=== PATIENT | male | born 2005 | race Caucasian/White ===

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

== ENCOUNTER → 2023-05-11 | Outpatient (CLI) | payer OTHER, SELFPAY ==
--- OUTSIDE RECORDS SUMMARY | 2023-05-11 11:21 | XMS RPT_ITS | CCD ---
Author Name Unknown Address [facility] [facility] [address] [place] [address] Organization [facility] Care Team Providers Care Security Support Analyst Name Role Phone Magdy Muñiz MD Primary Care Provider Medications Current Medications Medication Drug Class(es) Dates Sig (Normalized) Sig (Original) montelukast 10 mg oral tablet (2 sources) Leukotriene Receptor Antagonist Start: 03-27-2020 End: 10-31-2022 take 1 tablet by mouth once daily at bedtime montelukast (SINGULAIR) 10 mg tablet Take 1 tablet by mouth daily at bedtime. 90 tablet 0 10/31/2021 10/31/2022 Active Completed/Discontinued Medications Medication Drug Class(es) Dates Sig (Normalized) Sig (Original) [id number] 200 actuat albuterol 0.09 mg/actuat metered dose inhaler (1 source) beta2-Adrenergic Agonist Start: 07-14-2017 take 2 puff(s) by inhalation every four hours as needed for wheezing albuterol HFA (VENTOLIN HFA) 90 mcg/actuation inhaler Inhale 2 Puffs as instructed every 4 hours as needed. For wheezing/shortnes s of breath. 1 Inhaler 1 07/14/2017 Active Problems Problem Classification Problem Date Documented Date Episodic/Chronic Asthma (1 source) Uncomplicated mild persistent asthma; Translations: [Mild persistent asthma, uncomplicated] Onset: 11-01-2017 11-01-2017 Chronic Results Test Name Value Interpretation Reference Range Facil ity Encounters Encounter Date Encounter Type Care Provider Facility Start: 10-31-2021 Refill Magdy Muñiz MD Work Phone: [facility] Procedures Date Procedure Procedure Detail Performing Clinician Start: 08-24-2019 Adult depression screening assessment Magdy Muñiz MD Work Phone: Plan of Treatment Date Care Activity Detail Author Start: 11-06-2025 Urine microalbumin profile DTA P,TDAP,TD (7 - Td or Tdap) [facility] Start: 03-27-2022 ASTHMA ACTION PLAN ASTHMA ACTION JUSTIN N [facility] Start: 12-10-2021 Influenza vaccination INFLUENZA (#1) [facility] Start: 08-07-2021 ANNUAL PCP TEAM REALTIME REPORTER ROBERTO DISEASE VISIT ANNUAL PCP TEAM CHRONIC DISEASE VISIT [facility] Start: 2021 HEPATITIS C SCREENING HEPATITIS C SC REENING [facility] Start: 2021 HIV SCREENING HIV SCREENING [facility] Start: 2021 SPIROMETRY SPIROMETRY [facility] Start: 08-23-2020 Adult depression scr eening assessment DEPRESSION SCREENING [facility] Start: 08-22-2020 COVID-19 VACCINE (2 - Pfizer series) COVID-19 VACCINE (2 - Pfizer series) [facility] Start: 03-17-2020 ASTHMA CONTROL TEST ASTHMA CONTROL T EST [facility] Start: 2017 PEDS TO ADULT TRANSI TION ANNUAL ASSESSMENT PEDS TO ADULT TRANSITION ANNUAL ASSESSMENT [facility] Start: 2015 PEDS TO ADULT TRANSI TION INITIAL DISCUSSION PEDS TO ADULT TRANSITION INITIAL DISCUSSION [facility] Start: 2013 MENINGOCOCCAL B: Con razor sharpener based on risk (1 of 2 - Risk Bexsero 2-dose series) MENINGOCOCCAL B: Consider based on risk (1 of 2 - Risk Bexsero 2-dose series) [facility] Immunizations Immunization Date Immunization Notes Care Provider Fa hortencia 03-17-2019 meningococcal polysaccharide (groups A, C, Y and W-135) diphtheria toxoid conjugate vaccine (MCV4P) Magdy Muñiz MD Work Phone: [facility] 03-03-2019 influenza, injectabl e, quadrivalent, contains preservative Magdy Muñiz MD Work Phone: [facility] Work Phone: 02-02-2018 Human Papillomavirus 9-valent vaccine Magdy Muñiz MD Work Phone: [facility] 02-02-2018 influenza, injectabl e, quadrivalent, contains preservative Magdy Muñiz MD Work Phone: [facility] 01-09-2017 influenza, injectabl e, quadrivalent, contains preservative Magdy Muñiz MD Work Phone: [facility] 02-18-2016 influenza, injectabl e, quadrivalent, preservative free Magdy Muñiz MD Work Phone: [facility] 11-07-2015 Human Papillomavirus 9-valent vaccine Magdy Muñiz MD Work Phone: [facility] 11-07-2015 meningococcal polysaccharide (groups A, C, Y and W-135) diphtheria toxoid conjugate vaccine (MCV4P) Magdy Muñiz MD Work Phone: [facility] 11-07-2015 tetanus toxoid, redu shreya diphtheria toxoid, and acellular pertussis vaccine, adsorbed Magdy Muñiz MD Work Phone: [facility] 02-12-2015 influenza, injectabl e, quadrivalent, contains preservative Magdy Muñiz MD Work Phone: [facility] 01-23-2014 influenza, seasonal, injectable Magdy Muñiz MD Work Phone: [facility] Work Phone: 01-13-2013 influenza virus vacc ine, live, attenuated, for intranasal use Magdy Muñiz MD Work Phone: [facility] Work Phone: 01-08-2012 influenza virus vacc ine, live, attenuated, for intranasal use Magdy Muñiz MD Work Phone: [facility] 01-09-2011 influenza virus vacc ine, live, attenuated, for intranasal use Magdy Muñiz MD Work Phone: [facility] 02-09-2010 influenza virus vacc ine, live, attenuated, for intranasal use Magdy Muñiz MD Work Phone: [facility] Work Phone: 02-12-2009 novel influenza-H1N1 -09, preservative-free, injectable Magdy Muñiz MD Work Phone: [facility] 06-10-2008 Diphtheria, tetanus toxoids and acellular pertussis vaccine, and poliovirus vaccine, inactivated Magdy Muñiz MD Work Phone: [facility] Work Phone: 06-10-2008 measles, mumps and rubella virus vaccine Magdy Muñiz MD Work Phone: [facility] Work Phone: 06-10-2008 varicella virus vaccine Magdy Muñiz MD Work Phone: [facility] Work Phone: 02-14-2008 influenza virus vacc ine, unspecified formulation Magdy Muñiz MD Work Phone: [facility] Work Phone: 02-13-2007 influenza virus vacc ine, unspecified formulation Magdy Muñiz MD Work Phone: [facility] 02-14-2006 influenza virus vacc ine, unspecified formulation Magdy Muñiz MD Work Phone: [facility] Work Phone: 02-02-2005 influenza virus vacc ine, unspecified formulation Magdy Muñiz MD Work Phone: [facility] Work Phone: 06-08-2004 diphtheria, tetanus toxoids and acellular pertussis vaccine Magdy Muñiz MD Work Phone: [facility] Work Phone: 06-08-2004 haemophilus influenz ae type b vaccine, HbOC conjugate Magdy Muñiz MD Work Phone: [facility] Work Phone: 04-24-2004 pneumococcal conjuga te vaccine, 7 valent Magdy Muñiz MD Work Phone: [facility] Work Phone: 02-28-2004 measles, mumps and rubella virus vaccine Magdy Muñiz MD Work Phone: [facility] Work Phone: 02-28-2004 varicella virus vaccine Magdy Muñiz MD Work Phone: [facility] Work Phone: 01-23-2004 pneumococcal conjuga te vaccine, 7 valent Magdy Muñiz MD Work Phone: [facility] Work Phone: 2003 hepatitis B vaccine, pediatric or pediatric/adolescent dosage Magdy Muñiz MD Work Phone: [facility] Work Phone: 2003 poliovirus vaccine, inactivated Magdy Muñiz MD Work Phone: [facility] Work Phone: 2003 diphtheria, tetanus toxoids and acellular pertussis vaccine Magdy Muñiz MD Work Phone: [facility] Work Phone: 2003 haemophilus influenz ae type b vaccine, HbOC conjugate Magdy Muñiz MD Work Phone: [facility] Work Phone: 2003 diphtheria, tetanus toxoids and acellular pertussis vaccine Magdy Muñiz MD Work Phone: [facility] Work Phone: 2003 haemophilus influenz ae type b vaccine, HbOC conjugate Magdy Muñiz MD Work Phone: [facility] Work Phone: 2003 pneumococcal conjuga te vaccine, 7 valent Magdy Muñiz MD Work Phone: [facility] Work Phone: 2003 poliovirus vaccine, inactivated Magdy Muñiz MD Work Phone: [facility] Work Phone: 2003 diphtheria, tetanus toxoids and acellular pertussis vaccine Magdy Muñiz MD Work Phone: [facility] Work Phone: 2003 haemophilus influenz ae type b vaccine, HbOC conjugate Magdy Muñiz MD Work Phone: [facility] Work Phone: 2003 hepatitis B vaccine, pediatric or pediatric/adolescent dosage Magdy Muñiz MD Work Phone: [facility] Work Phone: 2003 pneumococcal conjuga te vaccine, 7 valent Magdy Muñiz MD Work Phone: [facility] Work Phone: 2003 poliovirus vaccine, inactivated Magdy Muñiz MD Work Phone: [facility] Work Phone: 2003 hepatitis B vaccine, pediatric or pediatric/adolescent dosage Magdy Muñiz MD Work Phone: [facility] Work Phone: Payers Date Payer Category Payer Private Health Insurance [employer] A ETNA CHOICE POS II [id number] 2019-Present [phone] [address] [place] [address] POS [id number] Social History Date Type Detail Facility Tobacco smoking status NHIS Never smoked tobacco [facility] Start: 08-07-2020 Alcohol intake Not Asked [facility] Start: 2003 Sex Assigned At Not on file [facility] Note 10-31-2021 Telephone Encounter - Clementina Duncan LPN - 10/31/2021 11:43 AM EDTTelephone Encounter - Flaquita Delong MD - 10/31/2021 11:36 AM EDTTelephone Encounter - Clementina Duncan LPN - 10/31/2021 10:20 AM EDT Note Date & Type Note Facility 10-31-2021 Miscellaneous Notes The following approved medication requests have been transmitted electronically. Signed Prescriptions Disp Refills montelukast (SINGULAIR) 10 mg tablet 90 tablet 0 Sig: Take 1 tablet by mouth daily at bedtime. CHANTE: No Authorizing Provider: FLAQUITA DELONG LPN Patient's request for medication is as follows Signed Prescriptions Disp Refills montelukast (SINGULAIR) 10 mg tablet 90 tablet 0 Sig: Take 1 tablet by mouth daily at bedtime. CHANTE: No Authorizing Provider: FLAQUITA DELONG Order entered - please phone pharmacy and notify patient. Flaquita Delong MD Pt is in the process of switching to adult med but would like Rx since it will be awhile before can be seen. Last WCC: greater than one year ago Verify RX Benefits Completed Last medication refill date: 03/27/2020 +11 refills Requesting 30 day supply Retail pharmacy updated: Completed Patient aware RX will be sent to pharmacy. No need to notify patient. Immunizations due: MENINGOCOCCAL B: Consider based on risk(1 of 2 - Risk Bexsero 2-dose series) Never done ASTHMA CONTROL TEST due on 03/17/2020 COVID-19 VACCINE(2 - Pfizer series) due on 08/22/2020 DEPRESSION SCREENING due on 08/23/2020 SPIROMETRY Never done HEPATITIS C SCREENING Never done HIV SCREENING Never done ANNUAL PCP TEAM CHRONIC DISEASE VISIT due on 08/07/2021 Clementina Duncan LPN documented in this encounter [facility] Progress note 08-07-2020 Note Date & Type Note Facility 08-07-2020 Note HNO ID: [id number] Author: Magdy Muñiz MD Service: ? Author Type: Physician Type: Progress Notes Filed: 08/17/2020 3:44 PM Note Text: 15-year old presents to the office today with a month-long complaint of abdominal bloating and fecal urgency. The issues are not present on a daily basis. The issues are clearly when the patient has dairy. Other foods may be involved with the patient has a little bit of difficulty identifying other triggers. The patient denies anorexia or weight loss The patient denies oral ulcerations, dysphagia or odynophagia The patient denies abdominal pain The patient denies vomiting The patient denies daily diarrhea or bloody stools When the patient does have abdominal bloating his stools are Taos stool scale #6, otherwise Taos stool scale #4 No complaints of rectal pain or rectal burning No joint complaints No rashes REVIEW OF SYSTEMS GENERAL: No weight loss, malaise or fevers HEENT: Negative for frequent or significant headaches, significant change in vision, significant vision problems, significant ear problems or hearing loss, nasal discharge, or nose bleeds, sore throat, difficulty swallowing, mouth lesions, hoarseness NECK: Negative for lumps, goiter, pain and significant neck swelling RESPIRATORY: Negative for cough, hemoptysis, wheezing, COPD, dyspnea or shortness of breath CARDIOVASCULAR: Negative for chest pain, leg swelling, hypertension, CHF or palpitations GI: See HPI : No history of dysuria, frequency or incontinence MUSCULOSKELETAL: Negative for joint pain or swelling, back pain or muscle pain SKIN: Negative for lesions, rash, and itching PSYCH: Negative for sleep disturbance, mood disorder and recent psychosocial stressors HEMATOLOGY/LYMPHOLOGY: Negative for prolonged bleeding, bruising easily or swollen nodes ENDOCRINE: Negative for cold or heat intolerance, polyuria, polydipsia and goiter NEURO: No history of headaches, syncope, paralysis, seizures or tremors ACTIVE PROBLEM LIST Mild Persistent Asthma Without Complication PAST MEDICAL HISTORY Diagnosis Date - Asthma - PMH - PAST MEDICAL HISTORY OF normal color vision. - Respiratory syncytial virus (RSV) PAST SURGICAL HISTORY Procedure Laterality Date - CIRCUMCISION,OTHR, ALLERGIES No Known Allergies 08/07/20 1513 BP: 108/64 Pulse: 68 Resp: 14 Temp: 36.8 ?C (98.2 ?F) TempSrc: Temporal Weight: 69.2 kg (152 lb 8 oz) GENERAL: alert and active in no apparent distress, nontoxic-appearing HEAD: Normocephalic, atraumatic EYES: EOM's intact, conjunctiva without injection or discharge, no scleral icterus is present OROPHARYNX:moist mucous membranes, tonsils without hypertrophy and no exudates present NECK: Negative for anterior or posterior cervical adenopathy. No masses are present in the suprasternal notch. No supraclavicular adenopathy is present CARDIOVASCULAR : Regular Rate and Rhythm without murmurs or clicks, well perfused LUNGS: clear to auscultation, excellent air exchange, resonant to percussion, easy respirations without grunting/flaring/retracting. ABDOMEN : Abdomen is soft, nontender, without organomegaly or masses. No guarding or rebound. Bowel sounds are intact in all 4 quadrants. MUSCULOSKELETAL: Extremities with FROM and no problems identified. EXTREMITIES: Normal exam of the extremities. No clubbing, cyanosis, or edema. NEUROLOGICAL : Muscle tone normal and Normal age appropriate gait. SKIN : Negative for jaundice. Negative for petechiae or purpura. Negative for rash. Normal skin turgor Impression: (R14.0) Abdominal bloating (primary encounter diagnosis) (R15.2) Fecal urgency Plan: Laboratories ordered through [facility] (father works at the hospital and patient's insurance demands use of their lab ) CBC, CMP, ESR, transglutaminase and serum IgA IBS diet handout given. Education given. Discussion of illness/condition and rationale for evaluation discussed. I spent a total of 30 minutes on the date of the service which included preparing to see the patient, [id number] patient care, completing clinical documentation, obtaining and/or reviewing separately obtained history, performing a medically appropriate examination, counseling and educating the patient/family/caregiver and ordering medications, tests, or procedures. Follow-up 1 month Magdy Muñiz MD [facility] Department of Pediatrics, [facility] [place] Summary Purpose Family History No Family History Records Found Advance Directives No Advanced Directives Records Found Additional Source Comments (unrecognized sect ion and content) No Status Records Found INFORMATION SOURCE (unrecogn ized section and content) Source Comments (unrecognize d section and content) In the event this informatio n is protected by the Federal Confidentiality of Alcohol and Drug Abuse Patient Records regulations: The Federal rules restrict any use of the information to criminally investigate or prosecute any alcohol or drug abuse patient.[facility] Reason for Visit (unrecogniz ed section and content) Care Teams (unrecognized sec tion and content) FOR RECORDS PERTAINING TO PATIENTS WHO ARE OR HAVE BEEN ENROLLED IN A CHEMICAL DEPENDENCY/SUBSTANCEABUSE PROGRAM, SOME INFORMATION MAY BE OMITTED. This clinical summary was aggregated from multiple sources. Caution should be exercised in using it in the provision of clinical care. This summary normalizes information from multiple sources, and as a consequence, information in this document may materially change the coding, format and clinical context of patient data. In addition, data may be omitted in some cases. CLINICAL DECISIONS SHOULD BE BASED ON THE PRIMARY CLINICAL RECORDS. [employer] [facility]. provides no warranty or guarantee of the accuracy or completeness of information in this document.
== END | disposition home or self-care (01) ==
LOC: LABSPEC 10:11
PROVIDERS: PCP Pediatrics; Referring Provider Physician Assistant Surgical; Visit Provider Physician Assistant Surgical
DX: N39.0 Urinary tract infection, site not specified (principal)
CPT/HCPCS: 87086

== ENCOUNTER → 2024-10-16 | Outpatient (CLI) | payer OTHER, SELFPAY ==
--- NOTE | 2024-10-16 15:08 | US_ITS ---
PROCEDURE: HEAD/NECK SOFT TISSUE 10/16/2024 REASON FOR EXAM: L SUBMANDIBULAR, POORLY DEFINED MASS. TECHNIQUE: HEAD/NECK SOFT TISSUE COMPARISON: None FINDINGS: There is evidence of a 1.8 cm 1.5 cm 0.6 cm benign-appearing lymph node in the right submandibular region. Several lymph nodes are seen in the left submandibular region. The largest measures 2 cm x 1.2 cm x 0.8 cm. The central fatty hilum does not appear normal. Biopsy recommended. There is also evidence of a 1.1 cm x 0.6 cm x 0.7 cm lymph node. US/Head/Neck Soft Tissue IMPRESSION: Bilateral lymph nodes as described. There is a dominant 2 cm x 1.2 cm x 0.8 cm lymph node in the left submandibular region. Biopsy recommended. Reading Location: [place] [address]
== END | disposition home or self-care (01) ==
LOC: US 15:04
PROVIDERS: PCP Family Medicine; Referring Provider Family Medicine; Visit Provider Family Medicine
DX: R22.1 Localized swelling, mass and lump, neck (principal)
CPT/HCPCS: 76536

== ENCOUNTER → 2025-02-26 | Outpatient (CLI) | payer OTHER, SELFPAY ==
--- NOTE | 2025-02-26 13:30 | FLU_PTH ---
PATIENT: TALIA SOTELO LOC: [facility] U#:[id number] AGE/SX: 20/M ROOM: RE02/26/[address]: Dr. Abiodun Carroll MD : 2005 BED: DIS: 02/26/2025 SPEC #: [id number] RECD: 02/26/25 14:15 STATUS: JACK REQ #: [id number] NEGIN: 02/26/25 13:[address]: Abiodun Carroll DEPT: CYTOLOGY RECD BY: Jona Morrow ENTERED: 02/27/25 11:11 SP TYPE: Fluid OTHR DR: Dr. Lexx Costa MD Tissues: A - Lymph node of neck, NOS Procedures: Pap Stain (control) Special Stain Group II Surgery Specimen Level IV Diff Quik Stain (control) Cytospin Fluid Cytology Other HEADER OPERATION: Fine needle aspiration of left level 2 lymph node PRE-OP DIAGNOSIS: Level 2 lymph node TISSUE SUBMITTED: A- Left level 2 lymph node DIAGNOSIS CYTOLOGY A. Lymph node, level 2: * Small and medium sized lymphocyte dominant population (See note) Note: The specimen consists predominately of small and medium sized lymphocytes. Immunohistochemical staining shows positive staining with CD3 and CD5. The CD20 is negative. The sampling is limited and may not be entirely front desk representative. If the lymphadenopathy continues or progress additional tissue for evaluation and flow cytometric analysis is recommended. Clinical correlation is recommended. The slides are reviewed with Dr. Araujo in consultation. CYTOLOGY STUDY Slides are reviewed. All matched controls reacted appropriately. These tests were developed and their performance characteristics determined by [facility]. They may not have been cleared or approved by the U.S. Food and Drug Administration. The FDA has determined that such clearance or approval is not necessary. The above immunohistochemical markers are viewed by the Pathologist. CYTOLOGY GROSS A. Received is 30 ml of red-cloudy cytolyt with particles and 4 smears labeled with the patient's name and and designated per the requisition as Left level 2 lymph node. Submitted for cytology and cell block preparation. Mr 02/27/2025 CPT: [id number]
== END | disposition home or self-care (01) ==
PROVIDERS: PCP Family Medicine; Referring Provider Surgery; Visit Provider Surgery
DX: R59.0 Localized enlarged lymph nodes (principal)
CPT/HCPCS: 88108; 88161; 88305; 88313